=== PATIENT | male | born 1970 | race Caucasian/White ===

== ENCOUNTER 2017-02-11 13:14 | Emergency (ER) | payer SELFPAY ==
[2015-02-18 10:11] VITALS: BMI 23.7
[~2017-02-11 13:14] MED LIST: ASPIRIN81 MG PO; BRILINTA90 MG PO; COREG6.25 MG PO; EFFIENT10 MG PO; GEODON60 MG PO; HALDOL ORA30 MG/15 M PO; HYDROCODONE-APA1 TAB PO; KLONOPIN0.5 MG PO; METOPROLOL TART50 MG PO; NAPROSYN500 MG PO; PLAVIX75 MG PO; PRAVACHOL20 MG PO; ULTRAM ER100 MG PO
== END 2017-02-11 14:38 | disposition home or self-care (01) ==
LOC: D.ER 13:14
DX: K04.7 Periapical abscess without sinus (principal); K02.9 Dental caries, unspecified; K08.89 Other specified disorders of teeth and supporting structures; F10.10 Alcohol abuse, uncomplicated; F31.9 Bipolar disorder, unspecified; F17.200 Nicotine dependence, unspecified, uncomplicated

== ENCOUNTER 2017-10-30 14:08 | Emergency (ER) | payer SELFPAY ==
[2015-02-18 10:11] VITALS: BMI 23.7
[2017-10-30 15:12] LABS: BASOPHILS 0.5 % (0-2); EOSINOPHILS 2.8 % (0-7); HEMATOCRIT 38.8 % (42.0-54.0); HEMOGLOBIN 13.3 g/dL (13.5-17.5); IMMATURE GRANULOCYTES 0.3 % (0-5); LYMPHOCYTES 16.8 % (15-50); MCH 33.6 pg (26.0-34.0); MCHC 34.3 g/dL (31.0-37.0); MEAN PLATELET VOLUME 8.7 fL (7.4-10.4); MONOCYTES 8.7 % (2-11); NEUTROPHILS 70.9 % (40-80); RBC 3.96 10x6/uL (4.20-6.10); WBC 6.2 10x3/uL (4.8-10.8)
[2017-10-30 15:15] LABS: PLATELET COUNT 221 10x3/uL (130-400)
[2017-10-30 15:29] LABS: ALBUMIN 3.3 g/dL (3.4-5.0); ALKALINE PHOSPHATASE 126 U/L (46-116); ALT (SGPT) 33 U/L (10-68); BILIRUBIN - TOTAL 0.35 mg/dL (0.2-1.3); CALC OSMOLALITY 263 mosm/kg (275-300); CALCIUM 8.6 mg/dL (8.5-10.1); CARBON DIOXIDE 26.9 mmol/L (21.0-32.0); CHLORIDE - SERUM 97 mmol/L (98-107); CREATININE - SERUM 0.8 mg/dL (0.6-1.3); GLUCOSE 103 mg/dL (74-106); POTASSIUM - SERUM 4.3 mmol/L (3.5-5.1); PROTEIN - SERUM 7.3 g/dL (6.4-8.2); SODIUM 132 mmol/L (136-145); UREA NITROGEN 11 mg/dL (7-18); eGFR NON AFRICAN AMERICAN > 90 mL/min (90-120)
[2017-10-30 19:14] LABS: TROPONIN-I 0.026 ng/mL (0.000-0.060)
[2017-10-30 20:49] LABS: APPEARANCE CLEAR (CLEAR); BILIRUBIN NEGATIVE (NEGATIVE); COLOR YELLOW (YELLOW); GLUCOSE NEGATIVE (NEGATIVE); KETONE NEGATIVE (NEGATIVE); NITRITE NEGATIVE (NEGATIVE); PROTEIN NEGATIVE (NEGATIVE); UROBILINOGEN NORMAL (NORMAL)
== END 2017-10-30 22:11 | disposition home or self-care (01) ==
LOC: D.ER 14:08
PROVIDERS: Family Medicine
DX: J18.9 Pneumonia, unspecified organism (principal); I25.10 Atherosclerotic heart disease of native coronary artery without angina pectoris; F17.200 Nicotine dependence, unspecified, uncomplicated

== ENCOUNTER 2017-10-31 18:48 | Emergency (ER) | payer SELFPAY ==
[2015-02-18 10:11] VITALS: BMI 23.7
== END 2017-11-01 01:02 | disposition home or self-care (01) ==
LOC: D.ER 18:48
DX: J18.9 Pneumonia, unspecified organism (principal); F17.200 Nicotine dependence, unspecified, uncomplicated

== ENCOUNTER 2017-12-16 02:36 | Inpatient (IN) | payer MEDICAID ==
--- NOTE | ~2017-12-16 | CN ---
PATIENT NAME:ALIN DICK SR MEDICAL RECORD: [id number] : 70 LOCATION:[facility].2311 ADMIT DATE: 12/16/17 ACCOUNT: [id number] CONSULTING PHYSICIAN: KRYSTAL CAMACHO MD REFERRING PHYSICIAN: ALECIA CHURCH MD DATE OF CONSULTATION: 12/16/2017 CONSULT REQUESTING PHYSICIAN: Alecia Church MD REASON FOR CONSULTATION: Pneumonia and alcoholism. HISTORY OF PRESENT ILLNESS: Mr. Dick is a 47-year-old gentleman who is a very poor historian, now sleepy after Ativan injection, not cooperating with a history. The history was taken mainly by reviewing the patient's note. The patient came in early this morning with chest pain. Workup showed no elevated cardiac enzymes, but the patient is drinking since yesterday. He is very irritated and agitated. The chest x-ray did show pneumonia. REVIEW OF SYSTEMS: The detail is not obtainable. PAST MEDICAL HISTORY: 1. Hypertension. 2. [place]. 3. Coronary artery disease. 4. Hypertensive cardiac disease. 5. History of ventricular aneurysm. 6. History of schizophrenia, depression, and anxiety. PAST SURGICAL HISTORY: 1. Ankle surgery. 2. Right heart stent placement, cardiac catheterization in January 2015. ALLERGIES: There are no known drug allergies. MEDICATIONS: He is on Plavix, naproxen, tramadol, haloperidol, and carvedilol. PERSONAL AND SOCIAL HISTORY: He is still an everyday drinker. FAMILY HISTORY: Significant for cardiovascular disease. PHYSICAL EXAMINATION: GENERAL: Now, the patient is lying comfortably in bed. He is not in acute distress. The patient is sedated. HEENT: Conjunctivae pink, sclerae nonicteric. NECK: Supple, no JVD. CHEST: Excursion is minimal on both sides. Crackle on the right side. No wheezing. HEART: Rhythm regular, normal sound, no murmur. ABDOMEN: Soft. Bowel sounds present. No hepatosplenomegaly. RECTAL: Deferred. EXTREMITIES: No cyanosis, no clubbing, no pedal edema. SKIN: Warm, normal turgor. CENTRAL NERVOUS SYSTEM: The patient is awake and alert. There are no obvious cranial nerve abnormalities. The gait was not tested. The patient is very sleepy and lethargic and irritated. CONSULT REPORT [id number] ALIN DICK SR CHEST RADIOGRAPH: There are infiltrates, right lower lobe. OTHER LABORATORY DATA: CBC: WBC is 5.4, hemoglobin 12.1, hematocrit 36.4, and the platelet count 166. Chemistry: Sodium is 139, potassium 3.9. Troponin is 0.051. The creatinine is 1.59. IMPRESSION: 1. Pneumonia, right lower lobe, most likely community-acquired pneumonia, possibly aspiration with alcoholism. 2. Alcoholism. 3. Chest pain, rule out acute coronary syndrome. 4. Hypertensive heart disease. 5. History of left ventricular aneurysm. 6. Congestive heart failure, possible diastolic dysfunction with elevated proBNP. 7. Coronary artery disease. RECOMMENDATIONS: 1. Continue Levaquin. I will add ceftriaxone. 2. Follow up labs and chest radiograph. 3. DTs precaution, multivitamin, and Ativan IV. 4. Cardiac workup, series of cardiac enzymes. Dr. Church thank you for involving me in the care of Mr. Dick. TRANSINT:[id number] Voice Confirmation ID: [id number] DOCUMENT ID: [id number] KRYSTAL CAMACHO MD at 1340 CC: ALECIA CHURCH [id number] DICTATION DATE: 12/16/171818 HAND SIGN WRITER: 12/16/171927 DIS IN 12/18/17 [facility] [address] [facility] [place] [address]
[2017-12-16 03:19] LABS: BASOPHILS 0.4 % (0-2); EOSINOPHILS 1.7 % (0-7); HEMATOCRIT 36.4 % (42.0-54.0); HEMOGLOBIN 12.1 g/dL (13.5-17.5); IMMATURE GRANULOCYTES 0.2 % (0-5); LYMPHOCYTES 37.3 % (15-50); MCH 34.4 pg (26.0-34.0); MCHC 33.2 g/dL (31.0-37.0); MCV 103.4 fL (80.0-100.0); MONOCYTES 8.2 % (2-11); NEUTROPHILS 52.2 % (40-80); PLATELET COUNT 166 10x3/uL (130-400); RBC 3.52 10x6/uL (4.20-6.10); WBC 5.4 10x3/uL (4.8-10.8)
[2017-12-16 03:27] LABS: INR 1.06 (0.85-1.17); PROTIME 13.4 SECONDS (11.6-15.0)
[2017-12-16 03:28] LABS: APTT 29.1 SECONDS (22.8-39.4)
[2017-12-16 03:29] LABS: D-DIMER-QUANTITATIVE 0.69 ug/mLFEU (0.20-0.54)
[2017-12-16 03:33] LABS: ALKALINE PHOSPHATASE 85 U/L (46-116); ALT (SGPT) 42 U/L (10-68); BILIRUBIN - TOTAL 0.51 mg/dL (0.2-1.3); CALC OSMOLALITY 278 mosm/kg (275-300); CALCIUM 8.3 mg/dL (8.5-10.1); CHLORIDE - SERUM 105 mmol/L (98-107); GLUCOSE 88 mg/dL (74-106); POTASSIUM - SERUM 3.9 mmol/L (3.5-5.1); PROTEIN - SERUM 6.3 g/dL (6.4-8.2); SODIUM 139 mmol/L (136-145); UREA NITROGEN 18 mg/dL (7-18); eGFR NON AFRICAN AMERICAN 85 mL/min (90-120)
[2017-12-16 03:44] LABS: AMYLASE - SERUM 44 U/L (25-115); CHOL - HDL RATIO 2.4 ratio (2.3-4.9); CHOLESTEROL, TOTAL 146 mg/dL (0-200); CKMB 6.8 U/L (0.0-3.6); CREATINE KINASE 180 UL (21-232); HDL CHOLESTEROL 61 mg/dL (32-96); LDL CHOLESTEROL 52 mg/dL (0-100); LDL-HDL RATIO 0.9 ratio (1.5-3.5); LIPASE 200 U/L (73-393); PRO BNP 2313 pg/mL (0-125); TRIGLYCERIDE 169 mg/dL (30-200); TROPONIN-I 0.041 ng/mL (0.000-0.060)
[2017-12-16 07:20] LABS: CKMB 7.5 U/L (0.0-3.6); CREATINE KINASE 205 UL (21-232)
[2017-12-16 13:09] LABS: CKMB 6.8 U/L (0.0-3.6); CREATINE KINASE 159 UL (21-232); TROPONIN-I 0.051 ng/mL (0.000-0.060)
[2017-12-16 18:38] LABS: CKMB 5.7 U/L (0.0-3.6); CREATINE KINASE 143 UL (21-232); TROPONIN-I 0.041 ng/mL (0.000-0.060)
[2017-12-17] VITALS (15 sets, daily range): BP systolic 103–142; BP diastolic 73–109; BMI 24.1
[2017-12-17 05:58] LABS: BASOPHILS 0.4 % (0-2); EOSINOPHILS 1.8 % (0-7); HEMATOCRIT 41.5 % (42.0-54.0); HEMOGLOBIN 13.4 g/dL (13.5-17.5); IMMATURE GRANULOCYTES 0.3 % (0-5); LYMPHOCYTES 13.4 % (15-50); MCHC 32.3 g/dL (31.0-37.0); MCV 105.3 fL (80.0-100.0); MEAN PLATELET VOLUME 8.9 fL (7.4-10.4); MONOCYTES 6.8 % (2-11); NEUTROPHILS 77.3 % (40-80); PLATELET COUNT 174 10x3/uL (130-400); RBC 3.94 10x6/uL (4.20-6.10); RDW 15.3 % (11.5-14.5)
[2017-12-17 05:59] LABS: WBC 7.8 10x3/uL (4.8-10.8)
[2017-12-17 06:25] LABS: ALKALINE PHOSPHATASE 85 U/L (46-116); ALT (SGPT) 36 U/L (10-68); CALC OSMOLALITY 280 mosm/kg (275-300); CALCIUM 7.9 mg/dL (8.5-10.1); CARBON DIOXIDE 24.6 mmol/L (21.0-32.0); CHLORIDE - SERUM 108 mmol/L (98-107); GLUCOSE 123 mg/dL (74-106); PROTEIN - SERUM 6.5 g/dL (6.4-8.2); SODIUM 140 mmol/L (136-145); UREA NITROGEN 15 mg/dL (7-18); eGFR NON AFRICAN AMERICAN 85 mL/min (90-120)
[2017-12-17 06:27] LABS: POTASSIUM - SERUM 4.5 mmol/L (3.5-5.1)
== END 2017-12-18 00:05 | DRG 896 ==
LOC: D.ER 02:36 → D.EDHOLD 06:02 → D.ICU 06:02
PROVIDERS: Family Medicine
DX: F10.231 Alcohol dependence with withdrawal delirium (principal); J69.0 Pneumonitis due to inhalation of food and vomit; I42.9 Cardiomyopathy, unspecified; J44.9 Chronic obstructive pulmonary disease, unspecified; I10 Essential (primary) hypertension; I25.10 Atherosclerotic heart disease of native coronary artery without angina pectoris; E78.5 Hyperlipidemia, unspecified; D64.9 Anemia, unspecified; T51.0X4A Toxic effect of ethanol, undetermined, initial encounter; D75.89 Other specified diseases of blood and blood-forming organs

== ENCOUNTER 2018-02-19 12:45 | Emergency (ER) | payer MEDICAID ==
[2017-12-17 11:13] VITALS: BMI 24.1
[2018-02-19 13:24] LABS: APPEARANCE CLEAR (CLEAR); BILIRUBIN NEGATIVE (NEGATIVE); COLOR YELLOW (YELLOW); GLUCOSE NEGATIVE (NEGATIVE); KETONE NEGATIVE (NEGATIVE); NITRITE NEGATIVE (NEGATIVE); PROTEIN NEGATIVE (NEGATIVE); SPECIFIC GRAVITY 1.005 (1.005-1.020); UROBILINOGEN NORMAL (NORMAL)
[2018-02-19 13:26] LABS: BASOPHILS 0.3 % (0-2); HEMATOCRIT 35.7 % (42.0-54.0); HEMOGLOBIN 11.6 g/dL (13.5-17.5); IMMATURE GRANULOCYTES 0.2 % (0-5); LYMPHOCYTES 15.8 % (15-50); MCH 33.6 pg (26.0-34.0); MCHC 32.5 g/dL (31.0-37.0); MCV 103.5 fL (80.0-100.0); MEAN PLATELET VOLUME 8.8 fL (7.4-10.4); MONOCYTES 6.4 % (2-11); NEUTROPHILS 75.3 % (40-80); RBC 3.45 10x6/uL (4.20-6.10); RDW 14.9 % (11.5-14.5); WBC 5.9 10x3/uL (4.8-10.8)
[2018-02-19 13:37] LABS: UDS - AMPHET NEGATIVE QUAL (NEGATIVE); UDS - BARB NEGATIVE QUAL (NEGATIVE); UDS - BENZO POSITIVE QUAL (NEGATIVE); UDS - COCAINE NEGATIVE QUAL (NEGATIVE); UDS - OPIATE NEGATIVE QUAL (NEGATIVE); UDS - PCP NEGATIVE QUAL (NEGATIVE); UDS - THC NEGATIVE QUAL (NEGATIVE)
[2018-02-19 13:37] LABS: PLATELET COUNT 212 10x3/uL (130-400)
[2018-02-19 13:43] LABS: ALBUMIN 2.6 g/dL (3.4-5.0); ALKALINE PHOSPHATASE 124 U/L (46-116); ALT (SGPT) 68 U/L (10-68); BILIRUBIN - TOTAL 0.35 mg/dL (0.2-1.3); CALC OSMOLALITY 279 mosm/kg (275-300); CALCIUM 8.3 mg/dL (8.5-10.1); CARBON DIOXIDE 23.5 mmol/L (21.0-32.0); CHLORIDE - SERUM 105 mmol/L (98-107); GLUCOSE 84 mg/dL (74-106); POTASSIUM - SERUM 4.4 mmol/L (3.5-5.1); PROTEIN - SERUM 6.2 g/dL (6.4-8.2); SODIUM 140 mmol/L (136-145); UREA NITROGEN 18 mg/dL (7-18); eGFR NON AFRICAN AMERICAN 85 mL/min (90-120)
[2018-02-19 13:54] LABS: CKMB 22.6 U/L (0.0-3.6); CREATINE KINASE 902 UL (21-232); TROPONIN-I 0.041 ng/mL (0.000-0.060)
== END 2018-02-19 16:43 | disposition left against medical advice (07) ==
LOC: D.ER 12:45
PROVIDERS: Family Medicine
DX: F10.129 Alcohol abuse with intoxication, unspecified (principal); R41.82 Altered mental status, unspecified; E72.20 Disorder of urea cycle metabolism, unspecified; F17.200 Nicotine dependence, unspecified, uncomplicated

== ENCOUNTER 2018-02-19 17:33 | Emergency (ER) | payer MEDICAID ==
[2017-12-17 11:13] VITALS: BMI 24.1
[2018-02-19 18:23] LABS: AMYLASE - SERUM 47 U/L (25-115); LIPASE 274 U/L (73-393)
== END 2018-02-19 21:01 | disposition home or self-care (01) ==
LOC: D.ER 17:33
PROVIDERS: Physician Assistant Medical
DX: R10.9 Unspecified abdominal pain (principal); F17.200 Nicotine dependence, unspecified, uncomplicated

== ENCOUNTER 2018-03-06 10:40 | Emergency (ER) | payer MEDICAID ==
[2017-12-17 11:13] VITALS: BMI 24.1
[2018-03-06 11:34] LABS: UDS - AMPHET POSITIVE QUAL (NEGATIVE); UDS - BARB NEGATIVE QUAL (NEGATIVE); UDS - BENZO POSITIVE QUAL (NEGATIVE); UDS - COCAINE NEGATIVE QUAL (NEGATIVE); UDS - OPIATE NEGATIVE QUAL (NEGATIVE); UDS - PCP NEGATIVE QUAL (NEGATIVE); UDS - THC NEGATIVE QUAL (NEGATIVE)
[2018-03-06 11:48] LABS: BASOPHILS 0.2 % (0-2); EOSINOPHILS 0.9 % (0-7); HEMATOCRIT 36.9 % (42.0-54.0); HEMOGLOBIN 12.1 g/dL (13.5-17.5); IMMATURE GRANULOCYTES 0.2 % (0-5); LYMPHOCYTES 12.1 % (15-50); MCH 32.8 pg (26.0-34.0); MCHC 32.8 g/dL (31.0-37.0); MEAN PLATELET VOLUME 8.9 fL (7.4-10.4); MONOCYTES 6.9 % (2-11); NEUTROPHILS 79.7 % (40-80); RBC 3.69 10x6/uL (4.20-6.10); RDW 15.5 % (11.5-14.5); WBC 12.1 10x3/uL (4.8-10.8)
[2018-03-06 11:50] LABS: APPEARANCE HAZY (CLEAR); COLOR AMBER (YELLOW); SPECIFIC GRAVITY 1.025 (1.005-1.020)
[2018-03-06 11:51] LABS: BACTERIA MODERATE /hpf (NONE SEEN); BILIRUBIN 1+ (NEGATIVE); GLUCOSE NEGATIVE (NEGATIVE); GRANULAR CAST 0-5 /lpf (NONE SEEN); KETONE NEGATIVE (NEGATIVE); MUCUS >1+ /lpf (NONE SEEN); NITRITE NEGATIVE (NEGATIVE); PROTEIN NEGATIVE (NEGATIVE); RED CELLS - URINE 0-5 /hpf (0-5); WHITE CELLS - URINE OCC /hpf (0-5)
[2018-03-06 11:54] LABS: PLATELET COUNT 271 10x3/uL (130-400)
[2018-03-06 11:57] LABS: APTT 29.6 SECONDS (22.8-39.4); INR 1.22 (0.85-1.17)
[2018-03-06 12:14] LABS: ALBUMIN 2.6 g/dL (3.4-5.0); ANION GAP 14.6 mmol/L (8-16); BILIRUBIN - TOTAL 1.38 mg/dL (0.2-1.3); CALCIUM 8.4 mg/dL (8.5-10.1); CARBON DIOXIDE 26.7 mmol/L (21.0-32.0); CREATININE - SERUM 1.4 mg/dL (0.6-1.3); POTASSIUM - SERUM 4.3 mmol/L (3.5-5.1); PROTEIN - SERUM 6.7 g/dL (6.4-8.2)
[2018-03-06 12:22] LABS: TROPONIN-I 0.035 ng/mL (0.000-0.060)
== END 2018-03-06 12:50 | disposition home or self-care (01) ==
LOC: D.ER 10:40
PROVIDERS: Emergency Medicine
DX: K29.00 Acute gastritis without bleeding (principal); Z91.11 Patient's noncompliance with dietary regimen; Z91.14 Patient's other noncompliance with medication regimen; R60.0 Localized edema; F19.10 Other psychoactive substance abuse, uncomplicated; R00.0 Tachycardia, unspecified; F17.200 Nicotine dependence, unspecified, uncomplicated

== ENCOUNTER 2018-03-07 03:21 | Inpatient (IN) | payer MEDICAID ==
[~2018-03-07] VITALS: Ht 180.3 cm; Wt 81.6 kg
[2018-03-07] VITALS (9 sets, daily range): BP systolic 105–126; BP diastolic 81–97; BMI 25.1
--- NOTE | ~2018-03-07 | HP ---
PATIENT: ALIN DICK MEDICAL RECORD: [id number] ACCOUNT: [id number] LOCATION:[facility] D.2303 : 70 ADMISSION DATE: 03/07/18 HISTORY AND PHYSICAL EXAMINATION HISTORY OF PRESENT ILLNESS: The patient is a 47-year-old male with history of coronary artery disease and congestive heart failure and chronic alcoholism. He was seen in the ED on the 03/06/2018, was discharged around 1500 hours for leg edema. He was given Lasix and sent home. He states he began having urinary retention and shortness of breath, so he called EMS. On arrival, he is in mild distress, presented with 3+ edema up to his knees. Bladder scan revealed 123 cc of urine in his bladder. He denied chest pain or fever. The patient was intoxicated. Evaluation in the ED revealed a blood alcohol level of 95, chronically elevated liver function test, BUN of 34, creatinine of 1.5. Chest x-ray reportedly showed mild pulmonary edema. The patient initially has a history of coronary artery disease with last cardiac catheterization in [address] Jimenez, post-CO showing patent LAD stent, ramus OM1 stent, patent left circumflex, patent with 40% mid stenosis and RCA with mild occlusion and was treated medically. The patient is now sleeping somewhat hard to arouse due to his intoxication. He has not been combative, but on last admission November of this year, he became combative and left AMA from the ICU with a diagnosis of pneumonia. PAST HISTORY: CAD post-PTCA multiple vessels, history of [place], history of schizophrenia, depression, ventricular aneurysm, hypertensive cardiac disease, essential hypertension. SURGICAL HISTORY: He has had ankle surgery, multiple coronary stents. ALLERGIES: None mentioned. FAMILY HISTORY: Unobtainable. REVIEW OF SYSTEMS: As above. Unobtainable from the patient currently as he is sleeping. PHYSICAL EXAMINATION: VITAL SIGNS: Temperature is 98.4, pulse 66 and regular, respirations 94, blood pressure 110/81 with a sat of 94% on 2 liters. GENERAL: The patient is somnolent and snoring. HEENT: His eyes are nonicteric. Pupils are reactive. NECK: Supple. CHEST: He has faint crackles in the bases. No wheeze. He is not laboring to breathe. HEART: Regular rate and rhythm without murmur. ABDOMEN: Soft. No obvious organomegaly or ascites appreciated. EXTREMITIES: He has 2+ bipedal and pretibial edema of the knees bilaterally. NEUROLOGICAL: The patient arouses to touch and loud vocal commands, but not following commands currently. No motor deficits are appreciated. LABORATORY DATA: EKG shows sinus rhythm with right axis deviation. White count 11,000, H&H of 11.5 and 35.2, MCV of 100.6, platelet count 278,000. Chemistry: Sodium 135, BUN and creatinine are 34 and 1.5, AST 158, ALT 230, alk phos 205. Creatinine kinase 294. CPK-MB 17.7 with a normal troponin. ProBNP is 5840. Urine tox shows alcohol of 95.0 and positive benzodiazepines. INR is 1.26. HISTORY AND PHYSICAL [id number] ALIN DICK SR ASSESSMENT: 1. Decompensated congestive heart failure with hypoxemia. 2. History of multivessel CAD post remote CO. 3. Intoxication. 4. Alcoholism. 5. Schizophrenia. 6. Essential hypertension. 7. History of pneumonia, November of 2017 leaving AMA. PLAN: The patient was placed on medical floor with close cardiac and respiratory monitoring. Concerned risk for DTs. Should patient show any agitation, we will move to the ICU. We will place on benzodiazepines as indicated, banana bag. Further workup pending clinical course. TRANSINT:[id number] Voice Confirmation ID: [id number] DOCUMENT ID: [id number] TAMMY CHAUDHARY MD at 0752 CC: [id number] DICTATION DATE: 03/07/18753 JEWEL BEARING MAKER: 03/07/18 1314 ADM IN [facility] [id number] [place] [address]
--- NOTE | ~2018-03-07 | CN ---
PATIENT NAME:ALIN DICK SR MEDICAL RECORD: [id number] : 70 LOCATION:[facility] ADMIT DATE: 03/07/18 ACCOUNT: [id number] CONSULTING PHYSICIAN: KRYSTAL CAMACHO MD REFERRING PHYSICIAN: SEUN PARKER MD DATE OF CONSULTATION: 03/07/2018 CONSULT REQUESTING PHYSICIAN: Dr. Seun Parker. REASON FOR CONSULTATION: Apneic episode. HISTORY OF PRESENT ILLNESS: Mr. Dick is a 47-year-old gentleman who was admitted to the ER with alcohol intoxication. Now, the patient is very lethargic and uncooperative and history was taken mainly by talking to the nursing staff and reviewing the patient's note. The patient was seen in the ER yesterday and discharged with Lasix for lower extremity edema. He was in mild distress and had 3+ pedal edema. Today, the patient came back with alcohol intoxication and also shortness of breath. The patient was taking some, most likely benzodiazepine. While in the hospital, they took out some pill from the pocket and took it. Since then, the patient has apneic episode and the patient was transferred to the ICU. The patient was given an injection of Romazicon and his breathing improved. Now, he is more awake and alert, but he is still confused and combative. REVIEW OF SYSTEMS: The detail is not obtainable. PAST MEDICAL HISTORY: 1. He has coronary artery disease, status post PTCA. 2. History of [place]. 3. Schizophrenia. 4. Depression. 5. Ventricular aneurysm. 6. Hypertensive cardiac disease. 7. Hypertension. 8. Alcoholism. PAST SURGICAL HISTORY: He had ankle surgery, cardiac catheterization and stent placement. ALLERGIES: There is no known drug allergy. FAMILY HISTORY: Not obtainable. PHYSICAL EXAMINATION: GENERAL: Now, the patient is very lethargic and agitated. VITAL SIGNS: Blood pressure 109/81, pulse is 114, respirations 16, temperature 97.3, SpO2 94% on BiPAP. On arrival to the ICU, he had another episode of apnea. HEENT: Conjunctivae are pink. Sclerae not icteric. NECK: Neck is supple. No JVD. CHEST: There are bilateral crackles. No wheezing. HEART: Rate and rhythm regular, normal sound, no murmur. ABDOMEN: Abdomen is soft. Bowel sounds present. No hepatosplenomegaly. RECTAL: Deferred. EXTREMITIES: No cyanosis, no clubbing. There is 2+ pedal edema. CONSULT REPORT [id number] ALIN DICK SR SKIN: Warm, normal turgor. CENTRAL NERVOUS SYSTEM: The patient is very confused and agitated. There is no obvious cranial abnormality. LABORATORY DATA: CBC with WBC 11, hemoglobin 11.5, hematocrit 35.2, the platelet count is 278. Chemistry: Sodium is 135, potassium 4.2, BUN is 34, creatinine 1.5. AST 158, ALT is 230, alkaline phosphatase 205. Ammonia 87. ProBNP is 5840. CK is 294, MB is 17.7. ABG: The pH is 7.25, pCO2 45.9, pO2 is 73, bicarbonate is 28.2. IMPRESSION: 1. Acute hypoxic respiratory failure. 2. Central apnea, most likely secondary to benzodiazepine overdose. 3. Alcoholism. 4. Hepatic encephalopathy. 5. Congestive heart failure, possible diastolic dysfunction secondary to hypertension. 6. Alcoholism. RECOMMENDATIONS: BiPAP as required. Romazicon injection p.r.n. I will hold the Lasix. Continue the multivitamin and banana bag. Start him on empiric Zosyn with the patient's leukocytosis and increased interstitial marking, possible aspiration pneumonia when the patient was obtunded. Lactulose 45 cc t.i.d. per oral. Follow up ammonia level, Lasix p.r.n. Follow up labs and chest radiograph in the morning. Dr. Parker, thank you for involving me in the care of Ms. Dick. TRANSINT:[id number] Voice Confirmation ID: [id number] DOCUMENT ID: [id number] KRYSTAL CAMACHO MD CC: SEUN PARKER [id number] DICTATION DATE: 03/07/18 1800 CORE SUCKER: 03/08/18 0206 ADM IN [facility] [address] [place] [address]
[2018-03-07 03:47] LABS: BASOPHILS 0.3 % (0-2); EOSINOPHILS 2.3 % (0-7); HEMATOCRIT 35.2 % (42.0-54.0); HEMOGLOBIN 11.5 g/dL (13.5-17.5); IMMATURE GRANULOCYTES 0.4 % (0-5); LYMPHOCYTES 17.2 % (15-50); MCH 32.9 pg (26.0-34.0); MCHC 32.7 g/dL (31.0-37.0); MCV 100.6 fL (80.0-100.0); MEAN PLATELET VOLUME 8.6 fL (7.4-10.4); MONOCYTES 6.4 % (2-11); NEUTROPHILS 73.4 % (40-80); PLATELET COUNT 278 10x3/uL (130-400); RDW 15.6 % (11.5-14.5)
[2018-03-07 03:57] LABS: APTT 31.1 SECONDS (22.8-39.4)
[2018-03-07 03:58] LABS: D-DIMER-QUANTITATIVE 3.15 ug/mLFEU (0.20-0.54)
[2018-03-07 04:00] LABS: ALBUMIN 2.5 g/dL (3.4-5.0); ALKALINE PHOSPHATASE 205 U/L (46-116); ALT (SGPT) 230 U/L (10-68); BILIRUBIN - TOTAL 0.85 mg/dL (0.2-1.3); CALC OSMOLALITY 276 mosm/kg (275-300); CARBON DIOXIDE 23.5 mmol/L (21.0-32.0); CHLORIDE - SERUM 100 mmol/L (98-107); CREATININE - SERUM 1.5 mg/dL (0.6-1.3); GLUCOSE 89 mg/dL (74-106); POTASSIUM - SERUM 4.2 mmol/L (3.5-5.1); PROTEIN - SERUM 6.5 g/dL (6.4-8.2); SODIUM 135 mmol/L (136-145); UREA NITROGEN 34 mg/dL (7-18); eGFR NON AFRICAN AMERICAN 53 mL/min (90-120)
[2018-03-07 04:03] LABS: INR 1.26 (0.85-1.17); PROTIME 15.3 SECONDS (11.6-15.0)
[2018-03-07 04:12] LABS: CKMB 17.7 U/L (0.0-3.6); CREATINE KINASE 294 UL (21-232); PRO BNP 5840 pg/mL (0-125); TROPONIN-I 0.039 ng/mL (0.000-0.060)
[2018-03-07 04:16] LABS: UDS - AMPHET NEGATIVE QUAL (NEGATIVE); UDS - BARB NEGATIVE QUAL (NEGATIVE); UDS - BENZO POSITIVE QUAL (NEGATIVE); UDS - COCAINE NEGATIVE QUAL (NEGATIVE); UDS - OPIATE NEGATIVE QUAL (NEGATIVE); UDS - PCP NEGATIVE QUAL (NEGATIVE); UDS - THC NEGATIVE QUAL (NEGATIVE)
[2018-03-07 04:22] LABS: APPEARANCE CLEAR (CLEAR); BILIRUBIN NEGATIVE (NEGATIVE); COLOR YELLOW (YELLOW); GLUCOSE NEGATIVE (NEGATIVE); KETONE NEGATIVE (NEGATIVE); NITRITE NEGATIVE (NEGATIVE); PROTEIN 2+ mg/dL (NEGATIVE)
[2018-03-07 04:23] LABS: BACTERIA FEW /hpf (NONE SEEN); EPITHELIAL CELLS 0-5 /hpf (0-5); HYALINE CAST 0-5 /lpf (NONE SEEN); RED CELLS - URINE 0-5 /hpf (0-5); WHITE CELLS - URINE 0-5 /hpf (0-5)
[2018-03-08] VITALS (25 sets, daily range): BP systolic 76–153; BP diastolic 53–86; Ht 180.3 cm; Wt 81.6 kg
[2018-03-08 05:03] LABS: BASOPHILS 0.1 % (0-2); EOSINOPHILS 0.3 % (0-7); HEMATOCRIT 36.1 % (42.0-54.0); HEMOGLOBIN 11.7 g/dL (13.5-17.5); IMMATURE GRANULOCYTES 0.3 % (0-5); LYMPHOCYTES 8.7 % (15-50); MCH 32.1 pg (26.0-34.0); MCHC 32.4 g/dL (31.0-37.0); MCV 99.2 fL (80.0-100.0); MEAN PLATELET VOLUME 9.3 fL (7.4-10.4); MONOCYTES 4.6 % (2-11); PLATELET COUNT 267 10x3/uL (130-400); RBC 3.64 10x6/uL (4.20-6.10); RDW 15.3 % (11.5-14.5); WBC 10.5 10x3/uL (4.8-10.8)
[2018-03-08 05:23] LABS: ALBUMIN 2.2 g/dL (3.4-5.0); BILIRUBIN - TOTAL 1.22 mg/dL (0.2-1.3); CALCIUM 7.8 mg/dL (8.5-10.1); CARBON DIOXIDE 24.2 mmol/L (21.0-32.0); CREATININE - SERUM 1.7 mg/dL (0.6-1.3); POTASSIUM - SERUM 4.2 mmol/L (3.5-5.1); PROTEIN - SERUM 5.7 g/dL (6.4-8.2)
[2018-03-09] VITALS (13 sets, daily range): BP systolic 80–146; BP diastolic 50–79
[2018-03-09 04:47] LABS: BASOPHILS 0.3 % (0-2); EOSINOPHILS 4.1 % (0-7); HEMATOCRIT 35.8 % (42.0-54.0); HEMOGLOBIN 11.7 g/dL (13.5-17.5); IMMATURE GRANULOCYTES 0.5 % (0-5); LYMPHOCYTES 16.9 % (15-50); MCH 32.4 pg (26.0-34.0); MCHC 32.7 g/dL (31.0-37.0); MCV 99.2 fL (80.0-100.0); MEAN PLATELET VOLUME 8.7 fL (7.4-10.4); MONOCYTES 8.4 % (2-11); NEUTROPHILS 69.8 % (40-80); PLATELET COUNT 272 10x3/uL (130-400); RBC 3.61 10x6/uL (4.20-6.10); RDW 15.6 % (11.5-14.5); WBC 10.2 10x3/uL (4.8-10.8)
[2018-03-09 05:07] LABS: ANION GAP 11.2 mmol/L (8-16); CALCIUM 7.9 mg/dL (8.5-10.1); CARBON DIOXIDE 27.4 mmol/L (21.0-32.0); CREATININE - SERUM 1.8 mg/dL (0.6-1.3); POTASSIUM - SERUM 3.6 mmol/L (3.5-5.1)
[2018-03-10 00:58] VITALS: BP 116/83
== END 2018-03-10 03:20 | disposition home or self-care (01) | DRG 291 ==
LOC: D.ER 03:21 → D.EDHOLD 05:21 → D.ICU 05:21 → D.MS 05:21 → D.ICU 16:25 → D.M2 03-09 17:22
PROVIDERS: Family Medicine
PROC: 5A09357 Assistance with Respiratory Ventilation, Less than 24 Consecutive Hours, Continuous Positive Airway Pressure (ICD-10-PCS; principal; 2018-03-07)
DX: I11.0 Hypertensive heart disease with heart failure (principal); J96.01 Acute respiratory failure with hypoxia; J69.0 Pneumonitis due to inhalation of food and vomit; J81.1 Chronic pulmonary edema; F10.239 Alcohol dependence with withdrawal, unspecified; I42.8 Other cardiomyopathies; I50.22 Chronic systolic (congestive) heart failure; F10.229 Alcohol dependence with intoxication, unspecified; K72.90 Hepatic failure, unspecified without coma; F17.200 Nicotine dependence, unspecified, uncomplicated; R33.9 Retention of urine, unspecified; Z91.19 Patient's noncompliance with other medical treatment and regimen; F20.9 Schizophrenia, unspecified; E78.5 Hyperlipidemia, unspecified; T42.4X4A Poisoning by benzodiazepines, undetermined, initial encounter

== ENCOUNTER 2018-03-12 03:10 | Emergency (ER) | payer MEDICAID ==
[2018-03-08 12:24] VITALS: BMI 25.1
== END 2018-03-12 04:50 | disposition home or self-care (01) ==
LOC: D.ER 03:10
DX: M54.5 Low back pain (principal); W19.XXXA Unspecified fall, initial encounter; Y93.89 Activity, other specified; Y92.89 Other specified places as the place of occurrence of the external cause; Y04.2XXA Assault by strike against or bumped into by another person, initial encounter

== ENCOUNTER 2018-03-13 03:47 | Inpatient (IN) | payer MEDICAID ==
[~2018-03-13] VITALS: Ht 180.3 cm; Wt 81.8 kg
--- NOTE | ~2018-03-13 | CN ---
PATIENT NAME:ALIN DICK SR MEDICAL RECORD: [id number] : 70 LOCATION:[facility]9 ADMIT DATE: 03/13/18 ACCOUNT: [id number] CONSULTING PHYSICIAN: KRYSTAL CAMACHO MD REFERRING PHYSICIAN: HOLLY GLASGOW MD DATE OF CONSULTATION: 03/14/2018 CONSULT REQUESTING PHYSICIAN: Holly Glasgow MD REASON FOR CONSULTATION: Vent management status post cardiopulmonary arrest. HISTORY OF PRESENT ILLNESS: Mr. Dick is a 47-year-old gentleman who was admitted with abdominal pain. He does have a history of cirrhosis of the liver, alcoholism. The patient was sitting on the commode today and the patient arrested. He was resuscitated, intubated, and the patient was brought into the ICU. He has totally wiped out his right lung, possible aspiration pneumonia during this resuscitation. REVIEW OF SYSTEMS: The detail is not obtainable. PAST MEDICAL HISTORY: 1. Coronary artery disease. 2. History of [place]. 3. Schizophrenia. 4. Depression. 5. History of ventricular aneurysm. 6. Hypertensive cardiac disease. 7. Congestive heart failure. 8. Alcoholism. 9. Cirrhosis of the liver. PAST SURGICAL HISTORY: 1. He has ankle surgery. 2. Cardiac catheterization placement. ALLERGIES: There are no known drug allergies. MEDICATIONS: [employer] is reviewed. PERSONAL AND SOCIAL HISTORY: The patient is drinking on a regular basis. He is a nonsmoker. FAMILY HISTORY: Noncontributory. PHYSICAL EXAMINATION: GENERAL: Now, the patient is orally intubated and sedated and unresponsive. VITAL SIGNS: The blood pressure is 118/65, pulse is 99, respiration is 24, temperature 97.9, SpO2 98% on mechanical ventilation and assist control. HEENT: Conjunctivae are pink. Sclerae are not icteric. Blood oozing from the nostril. HEART: Rate and rhythm is regular, normal S1, no murmur. ABDOMEN: Soft, bowel sounds present. No hepatosplenomegaly. RECTAL: Deferred. EXTREMITIES: No cyanosis, no clubbing, no pedal edema. SKIN: Warm, normal turgor. CONSULT REPORT [id number] ALIN DICK SR CENTRAL NERVOUS SYSTEM: The patient is unresponsive. LABORATORY DATA: CBC: The WBC is 9.6, hemoglobin 11.6, hematocrit 36, the platelet count 261. Chemistry: Sodium 139, potassium 4.4, BUN is 27, creatinine is 1, glucose 115, AST is 53, ALT is 76, alkaline phosphatase 169. Ammonia level is 35. Cardiac enzymes within normal range. Albumin is 2.4. IMPRESSION: 1. Acute hypoxic respiratory failure. 2. Status post code blue cardiopulmonary arrest. 3. Aspiration pneumonia, total wipe of right lung. 4. CHF with chronic systolic dysfunction. 5. Hypertensive heart disorder. 6. Cirrhosis of liver. 7. Alcoholism. 8. Possible anoxic encephalopathy. RECOMMENDATION: 1. Continue mechanical ventilation, adjust the setting. 2. DVT and GI bleed prophylaxis. 3. Discontinue Zithromax, discontinue Rocephin and start him on Zosyn and Levaquin for aspiration pneumonia and possible hospital-acquired pneumonia. 4. Albuterol ipratropium nebulizer. 5. Follow up labs and chest radiograph. Dr. Glasgow, thank you for involving me in the care of Ms. Dick. TRANSINT:[id number] Voice Confirmation ID: [id number] DOCUMENT ID: [id number] KRYSTAL CAMACHO MD CC: [id number] DICTATION DATE: 03/14/18 1358 SECRETARY BOARD OF COMMISSIONERS: 03/14/18 1423 ADM IN [facility] [address] [place] [id number]
--- NOTE | ~2018-03-13 | EC ---
PATIENT:ALIN DICK SR DATE OF SERVICE: 03/13/18 SEX: M MEDICAL RECORD: [id number] DATE OF : 70 [facility] D230 AGE OF PATIENT: 47 ADMISSION DATE: 03/13/18 REFERRING PHYSICIAN: INTERPRETING PHYSICIAN: NAIN PACK MD ECHOCARDIOGRAM REPORT ECHO CHARGES 5 ECHO LIMITED Date: 03/13 1 DOPPLER ECHO COLOR FLOW 2 DOPPLER ECHO PULSE CLINICAL DIAGNOSIS: CHF ECHOCARDIOGRAPHIC MEASUREMENTS (adult normal given) AC root (d.<3.7cm) 0 cm LV Septum d (<1.2 cm> 0 cm Valve Excursion 0 cm LV Septum (systole) 0 cm Left Atria (s.<4.0cm> 0 cm LVPW d(<1.2cm) 0 cm RV (d.<2.3cm) 0 cm LVPW (sytole) 0 cm LV diastole(<5.6CM) 0 cm MV E-F(>70mm/sec) 0 cm LV systole 0 cm LVOT Diameter 0 cm MV exc.(>10mm) 0 cm Est.ejection fraction (50-75%) % DOPPLER: LVIT 0 cm/sec A 0 cm/sec E 0 cm/sec LA 0 cm/sec RVSP 46.0 mmHg LVOT 0 cm/sec AOP1/2T 0 m/s Asc. Ao 0 cm/sec RVOT 0 cm/sec RA 0 cm/sec PA 0 cm/sec AV Gradient Peak 0 mmHg AV Mean 0 mmHg AV Area 0 cm MV Gradient Peak 0 mmHg MV Mean 0 mmHg MV Area 0 cm COMMENTS: LIMITED STUDY (2-D,COLOR,DOPPLER) COMPLETE ECHO DONE ON 03/08/18 Data Modeling Specialist: 1 CHRISTOPHER MORENOOE Branch Sales And Service Representative: 4 Dr. Pack TAPE# PACS Pericardial Effusion N DATE OF SERVICE: PROCEDURE: Transthoracic echocardiogram. FINDINGS: 1. Left ventricle was severely dilated, ejection fraction 15%. Left atrium and the right ventricle are also severely dilated. The patient has severe mitral regurgitation, severe tricuspid regurgitation, RVSP between 50 and 60 mmHg. 2. The interatrial septum is not well visualized. ECHOCARDIOGRAM REPORT [id number] ALIN DICK SR CONCLUSIONS: The patient has severe dilated cardiomyopathy with severe regurgitation of the tricuspid and mitral valve. TRANSINT:[id number] Voice Confirmation ID: [id number] DOCUMENT ID: [id number] NAIN PACK MD at 1342 CC: [id number] DICTATION DATE: 03/14/18812 OFFICE MACHINE TECHNICIAN: 03/14/18 1139 ADM IN [facility] [address] [place] [address]
--- NOTE | ~2018-03-13 | OP ---
PATIENT NAME: ALIN DICK SR MEDICAL RECORD: [id number] :70 LOCATION:.[facility] D.2309 ADMISSION DATE:03/13/18 SURGEON: KRYSTAL CAMACHO MD DATE OF OPERATION: 03/14/2018 PROCEDURE: Fiberoptic bronchoscopy. INDICATION: Mr. Dick was transferred to the ICU after cardiopulmonary arrest. The chest radiograph showed total opacification of the right lung. Fiberoptic bronchoscopy was carried out to inspect the airway for any food material and obtain specimen for culture and sensitivity to remove any mucous plug. DESCRIPTION OF PROCEDURE: The patient was already intubated. The fiberoptic bronchoscope was passed through the ET tube. The maria antonia was sharp. The right main bronchus to the right upper lobe, right lower lobe within normal range. There is some food particle and that was washed and cleaned. The left main bronchus was normal. The subsegment to the left upper lobe, left lower lobe within normal range. No endobronchial lesion was seen. Specimen washing was obtained and sent for routine culture sensitivity, AB and fungus, and cytology. TRANSINT:[id number] Voice Confirmation ID: [id number] DOCUMENT ID: [id number] KRYSTAL CAMACHO MD CC: [id number] DICTATION DATE: 03/14/18 1400 QUILL PICKING MACHINE OPERATOR: 03/14/18 1418 ADM IN [facility] [address] [place] [address]
[2018-03-13 04:50] LABS: BASOPHILS 0.4 % (0-2); EOSINOPHILS 2.4 % (0-7); HEMATOCRIT 36.5 % (42.0-54.0); IMMATURE GRANULOCYTES 0.8 % (0-5); LYMPHOCYTES 14.4 % (15-50); MCH 32.8 pg (26.0-34.0); MCHC 32.9 g/dL (31.0-37.0); MCV 99.7 fL (80.0-100.0); MEAN PLATELET VOLUME 8.8 fL (7.4-10.4); MONOCYTES 8.8 % (2-11); NEUTROPHILS 73.2 % (40-80); PLATELET COUNT 289 10x3/uL (130-400); RBC 3.66 10x6/uL (4.20-6.10); RDW 15.5 % (11.5-14.5); WBC 11.9 10x3/uL (4.8-10.8)
[2018-03-13 05:02] LABS: INR 1.18 (0.85-1.17); PROTIME 14.6 SECONDS (11.6-15.0)
[2018-03-13 05:07] LABS: ALBUMIN 2.7 g/dL (3.4-5.0); ALKALINE PHOSPHATASE 184 U/L (46-116); ALT (SGPT) 95 U/L (10-68); BILIRUBIN - TOTAL 0.78 mg/dL (0.2-1.3); CALC OSMOLALITY 272 mosm/kg (275-300); CALCIUM 8.2 mg/dL (8.5-10.1); CARBON DIOXIDE 27.5 mmol/L (21.0-32.0); CHLORIDE - SERUM 101 mmol/L (98-107); GLUCOSE 83 mg/dL (74-106); POTASSIUM - SERUM 3.8 mmol/L (3.5-5.1); PROTEIN - SERUM 6.8 g/dL (6.4-8.2); SODIUM 135 mmol/L (136-145); UREA NITROGEN 24 mg/dL (7-18); eGFR NON AFRICAN AMERICAN 85 mL/min (90-120)
[2018-03-13 05:17] LABS: D-DIMER-QUANTITATIVE 3.29 ug/mLFEU (0.20-0.54)
[2018-03-13 05:18] LABS: CKMB 5.6 U/L (0.0-3.6); CREATINE KINASE 189 UL (21-232); PRO BNP 5840 pg/mL (0-125); TROPONIN-I 0.036 ng/mL (0.000-0.060)
[2018-03-13 05:27] LABS: UDS - AMPHET NEGATIVE QUAL (NEGATIVE); UDS - BARB NEGATIVE QUAL (NEGATIVE); UDS - BENZO POSITIVE QUAL (NEGATIVE); UDS - COCAINE NEGATIVE QUAL (NEGATIVE); UDS - OPIATE NEGATIVE QUAL (NEGATIVE); UDS - PCP NEGATIVE QUAL (NEGATIVE); UDS - THC NEGATIVE QUAL (NEGATIVE)
[2018-03-13 07:30] LABS: TROPONIN-I 0.035 ng/mL (0.000-0.060)
[2018-03-13 13:22] LABS: INR 1.18 (0.85-1.17); PROTIME 14.6 SECONDS (11.6-15.0)
[2018-03-13 13:25] LABS: % SATURATION 15 % (15-55); IRON 67 ug/dl (35-150); TOTAL IRON BIND CAPACITY 430 ug/dl (260-445); UNSAT IRON BIND CAPACITY 363 ug/dl (150-375)
[2018-03-13 15:08] LABS: CKMB 5.5 U/L (0.0-3.6); CREATINE KINASE 192 UL (21-232)
[2018-03-13 15:11] LABS: TROPONIN-I < 0.017 ng/mL (0.000-0.060)
[2018-03-13 18:55] LABS: CKMB 6.1 U/L (0.0-3.6); CREATINE KINASE 169 UL (21-232); TROPONIN-I 0.034 ng/mL (0.000-0.060)
[2018-03-13 20:00] VITALS: BP 105/66
[2018-03-14] VITALS (17 sets, daily range): BP systolic 87–127; BP diastolic 62–93; BMI 28.8
[2018-03-14 06:00] LABS: BASOPHILS 0.2 % (0-2); EOSINOPHILS 1.6 % (0-7); HEMOGLOBIN 11.6 g/dL (13.5-17.5); IMMATURE GRANULOCYTES 0.3 % (0-5); LYMPHOCYTES 13.9 % (15-50); MCH 32.3 pg (26.0-34.0); MCHC 32.2 g/dL (31.0-37.0); MCV 100.3 fL (80.0-100.0); MEAN PLATELET VOLUME 9.1 fL (7.4-10.4); MONOCYTES 8.6 % (2-11); NEUTROPHILS 75.4 % (40-80); PLATELET COUNT 261 10x3/uL (130-400); RBC 3.59 10x6/uL (4.20-6.10); RDW 15.5 % (11.5-14.5); WBC 9.6 10x3/uL (4.8-10.8)
[2018-03-14 06:24] LABS: ALBUMIN 2.4 g/dL (3.4-5.0); ALKALINE PHOSPHATASE 169 U/L (46-116); ALT (SGPT) 76 U/L (10-68); CALC OSMOLALITY 283 mosm/kg (275-300); CALCIUM 8.5 mg/dL (8.5-10.1); CARBON DIOXIDE 29.2 mmol/L (21.0-32.0); CHLORIDE - SERUM 105 mmol/L (98-107); GLUCOSE 115 mg/dL (74-106); PROTEIN - SERUM 6.4 g/dL (6.4-8.2); SODIUM 139 mmol/L (136-145); UREA NITROGEN 27 mg/dL (7-18); eGFR NON AFRICAN AMERICAN 85 mL/min (90-120)
[2018-03-14 06:25] LABS: POTASSIUM - SERUM 4.4 mmol/L (3.5-5.1)
[2018-03-14 09:46] LABS: FOLATE (FOLIC ACID) - SERUM 18.9 ng/mL (>3.0)
[2018-03-15] VITALS (24 sets, daily range): BP systolic 84–186; BP diastolic 45–88; Ht 180.3 cm; Wt 81.8 kg
[2018-03-15 10:47] LABS: ALKALINE PHOSPHATASE 148 U/L (46-116); ALT (SGPT) 59 U/L (10-68); BILIRUBIN - TOTAL 0.65 mg/dL (0.2-1.3); CALC OSMOLALITY 292 mosm/kg (275-300); CALCIUM 7.9 mg/dL (8.5-10.1); CHLORIDE - SERUM 105 mmol/L (98-107); CREATININE - SERUM 1.1 mg/dL (0.6-1.3); GLUCOSE 91 mg/dL (74-106); MAGNESIUM - SERUM 1.2 mg/dL (1.8-2.4); PROTEIN - SERUM 5.1 g/dL (6.4-8.2); SODIUM 145 mmol/L (136-145); UREA NITROGEN 23 mg/dL (7-18); eGFR NON AFRICAN AMERICAN 76 mL/min (90-120)
[2018-03-15 10:49] LABS: POTASSIUM - SERUM 3.4 mmol/L (3.5-5.1)
[2018-03-15 13:19] LABS: FUNGUS STAIN Final report (())
[2018-03-15 14:23] LABS: ACID FAST SMEAR Negative (()); AFB SPECIMEN PROCESSING Concentration (())
[2018-03-15 20:23] LABS: ALBUMIN 1.9 g/dL (3.4-5.0); ANION GAP 6.8 mmol/L (8-16); BILIRUBIN - TOTAL 0.73 mg/dL (0.2-1.3); CALCIUM 8.2 mg/dL (8.5-10.1); CARBON DIOXIDE 36.4 mmol/L (21.0-32.0); CREATININE - SERUM 1.2 mg/dL (0.6-1.3); MAGNESIUM - SERUM 1.9 mg/dL (1.8-2.4); POTASSIUM - SERUM 3.2 mmol/L (3.5-5.1); PROTEIN - SERUM 5.8 g/dL (6.4-8.2)
[2018-03-16] VITALS (24 sets, daily range): BP systolic 86–111; BP diastolic 60–79
[2018-03-16 06:35] LABS: BASOPHILS 0.2 % (0-2); EOSINOPHILS 0.7 % (0-7); HEMATOCRIT 37.1 % (42.0-54.0); HEMOGLOBIN 12.2 g/dL (13.5-17.5); IMMATURE GRANULOCYTES 0.3 % (0-5); LYMPHOCYTES 12.3 % (15-50); MCH 32.3 pg (26.0-34.0); MCHC 32.9 g/dL (31.0-37.0); MCV 98.1 fL (80.0-100.0); MEAN PLATELET VOLUME 8.9 fL (7.4-10.4); MONOCYTES 7.7 % (2-11); NEUTROPHILS 78.8 % (40-80); PLATELET COUNT 281 10x3/uL (130-400); RBC 3.78 10x6/uL (4.20-6.10); RDW 16.2 % (11.5-14.5); WBC 9.4 10x3/uL (4.8-10.8)
[2018-03-16 06:52] LABS: ALBUMIN 1.8 g/dL (3.4-5.0); ANION GAP 8.4 mmol/L (8-16); BILIRUBIN - TOTAL 0.87 mg/dL (0.2-1.3); CALCIUM 7.9 mg/dL (8.5-10.1); CARBON DIOXIDE 33.8 mmol/L (21.0-32.0); CREATININE - SERUM 1.2 mg/dL (0.6-1.3); MAGNESIUM - SERUM 1.7 mg/dL (1.8-2.4); POTASSIUM - SERUM 3.2 mmol/L (3.5-5.1); PROTEIN - SERUM 5.6 g/dL (6.4-8.2)
[2018-03-16 07:28] LABS: PHENYTOIN (DILANTIN) 5.8 ug/mL (10.0-20.0); PHOSPHOROUS 4.6 mg/dL (2.5-4.9)
[2018-03-17] VITALS (24 sets, daily range): BP systolic 89–132; BP diastolic 62–101
[2018-03-17 03:31] LABS: BASOPHILS 0.5 % (0-2); EOSINOPHILS 0.9 % (0-7); HEMATOCRIT 38.8 % (42.0-54.0); HEMOGLOBIN 12.7 g/dL (13.5-17.5); IMMATURE GRANULOCYTES 0.3 % (0-5); LYMPHOCYTES 16.3 % (15-50); MCH 32.4 pg (26.0-34.0); MCHC 32.7 g/dL (31.0-37.0); MONOCYTES 8.8 % (2-11); NEUTROPHILS 73.2 % (40-80); PLATELET COUNT 277 10x3/uL (130-400); RBC 3.92 10x6/uL (4.20-6.10); RDW 16.5 % (11.5-14.5)
[2018-03-17 03:43] LABS: ANION GAP 11.8 mmol/L (8-16); BILIRUBIN - TOTAL 0.93 mg/dL (0.2-1.3); CALCIUM 8.2 mg/dL (8.5-10.1); CARBON DIOXIDE 31.6 mmol/L (21.0-32.0); CREATININE - SERUM 1.3 mg/dL (0.6-1.3); POTASSIUM - SERUM 3.4 mmol/L (3.5-5.1); PROTEIN - SERUM 6.1 g/dL (6.4-8.2)
[2018-03-18] VITALS (23 sets, daily range): BP systolic 86–114; BP diastolic 42–88
[2018-03-18 04:18] LABS: BASOPHILS 0.2 % (0-2); EOSINOPHILS 2.8 % (0-7); HEMATOCRIT 40.7 % (42.0-54.0); HEMOGLOBIN 13.1 g/dL (13.5-17.5); IMMATURE GRANULOCYTES 0.2 % (0-5); LYMPHOCYTES 9.2 % (15-50); MCHC 32.2 g/dL (31.0-37.0); MCV 99.5 fL (80.0-100.0); MEAN PLATELET VOLUME 9.1 fL (7.4-10.4); MONOCYTES 4.8 % (2-11); NEUTROPHILS 82.8 % (40-80); PLATELET COUNT 285 10x3/uL (130-400); RBC 4.09 10x6/uL (4.20-6.10); RDW 16.3 % (11.5-14.5); WBC 12.4 10x3/uL (4.8-10.8)
[2018-03-18 04:36] LABS: ALBUMIN 1.8 g/dL (3.4-5.0); BILIRUBIN - TOTAL 0.79 mg/dL (0.2-1.3); CARBON DIOXIDE 32.9 mmol/L (21.0-32.0); CREATININE - SERUM 1.2 mg/dL (0.6-1.3); PROTEIN - SERUM 6.1 g/dL (6.4-8.2)
[2018-03-18 04:38] LABS: ANION GAP 8.4 mmol/L (8-16); POTASSIUM - SERUM 3.3 mmol/L (3.5-5.1)
[2018-03-19] VITALS (24 sets, daily range): BP systolic 94–119; BP diastolic 61–98
[2018-03-19 04:56] LABS: BASOPHILS 0.2 % (0-2); EOSINOPHILS 3.2 % (0-7); HEMATOCRIT 39.3 % (42.0-54.0); HEMOGLOBIN 12.5 g/dL (13.5-17.5); IMMATURE GRANULOCYTES 0.3 % (0-5); LYMPHOCYTES 10.6 % (15-50); MCHC 31.8 g/dL (31.0-37.0); MCV 100.5 fL (80.0-100.0); MEAN PLATELET VOLUME 9.3 fL (7.4-10.4); MONOCYTES 6.8 % (2-11); NEUTROPHILS 78.9 % (40-80); PLATELET COUNT 263 10x3/uL (130-400); RBC 3.91 10x6/uL (4.20-6.10); RDW 16.4 % (11.5-14.5); WBC 11.4 10x3/uL (4.8-10.8)
[2018-03-19 05:24] LABS: ALBUMIN 1.8 g/dL (3.4-5.0); ALKALINE PHOSPHATASE 106 U/L (46-116); BILIRUBIN - TOTAL 0.54 mg/dL (0.2-1.3); CALC OSMOLALITY 284 mosm/kg (275-300); CALCIUM 7.9 mg/dL (8.5-10.1); CARBON DIOXIDE 31.9 mmol/L (21.0-32.0); CHLORIDE - SERUM 102 mmol/L (98-107); GLUCOSE 103 mg/dL (74-106); POTASSIUM - SERUM 3.4 mmol/L (3.5-5.1); SODIUM 142 mmol/L (136-145); UREA NITROGEN 18 mg/dL (7-18); eGFR NON AFRICAN AMERICAN 85 mL/min (90-120)
[2018-03-19 05:25] LABS: ALT (SGPT) 44 U/L (10-68)
[2018-03-19 12:11] LABS: MAGNESIUM - SERUM 2.1 mg/dL (1.8-2.4); PHENYTOIN (DILANTIN) 2.3 ug/mL (10.0-20.0); POTASSIUM - SERUM 3.9 mmol/L (3.5-5.1)
[2018-03-20] VITALS (19 sets, daily range): BP systolic 86–109; BP diastolic 58–78
[2018-03-20 04:47] LABS: BASOPHILS 0.2 % (0-2); EOSINOPHILS 0.9 % (0-7); HEMATOCRIT 34.8 % (42.0-54.0); HEMOGLOBIN 11.3 g/dL (13.5-17.5); IMMATURE GRANULOCYTES 0.3 % (0-5); LYMPHOCYTES 5.4 % (15-50); MCH 32.2 pg (26.0-34.0); MCHC 32.5 g/dL (31.0-37.0); MCV 99.1 fL (80.0-100.0); MEAN PLATELET VOLUME 9.4 fL (7.4-10.4); MONOCYTES 6.4 % (2-11); NEUTROPHILS 86.8 % (40-80); PLATELET COUNT 245 10x3/uL (130-400); RBC 3.51 10x6/uL (4.20-6.10); RDW 16.2 % (11.5-14.5)
[2018-03-20 04:53] LABS: WBC 15.1 10x3/uL (4.8-10.8)
[2018-03-20 05:01] LABS: ALBUMIN 1.8 g/dL (3.4-5.0); ALKALINE PHOSPHATASE 100 U/L (46-116); ALT (SGPT) 41 U/L (10-68); BILIRUBIN - TOTAL 0.61 mg/dL (0.2-1.3); CALC OSMOLALITY 282 mosm/kg (275-300); CALCIUM 7.7 mg/dL (8.5-10.1); CARBON DIOXIDE 30.7 mmol/L (21.0-32.0); CHLORIDE - SERUM 101 mmol/L (98-107); CREATININE - SERUM 0.9 mg/dL (0.6-1.3); GLUCOSE 129 mg/dL (74-106); POTASSIUM - SERUM 3.4 mmol/L (3.5-5.1); PROTEIN - SERUM 6.2 g/dL (6.4-8.2); SODIUM 139 mmol/L (136-145); UREA NITROGEN 20 mg/dL (7-18); eGFR NON AFRICAN AMERICAN > 90 mL/min (90-120)
[2018-03-20 12:02] LABS: POTASSIUM - SERUM 3.8 mmol/L (3.5-5.1); VANCOMYCIN - TROUGH 12.3 ug/mL (10.0-20.0)
[2018-03-20 17:12] LABS: FUNGUS MYCOLOGY CULTURE Preliminary report (())
== END 2018-03-20 20:13 | disposition short-term general hospital (02) | DRG 207 ==
LOC: D.ER 03:47 → D.EDHOLD 06:16 → D.ICU 06:16 → D.M2 14:01 → D.EDHOLD 14:42 → D.M2 15:12 → D.EDHOLD 15:16 → D.M2 17:12 → D.ICU 03-14 11:23
PROVIDERS: Family Medicine; Internal Medicine Nephrology; Internal Medicine Pulmonary Disease
PROC: 5A1955Z Respiratory Ventilation, Greater than 96 Consecutive Hours (ICD-10-PCS; principal; 2018-03-13)
PROC: 0BC58ZZ Extirpation of Matter from Right Middle Lobe Bronchus, Via Natural or Artificial Opening Endoscopic (ICD-10-PCS; 2018-03-15)
DX: J69.0 Pneumonitis due to inhalation of food and vomit (principal); I50.23 Acute on chronic systolic (congestive) heart failure; J96.01 Acute respiratory failure with hypoxia; R40.2124 Coma scale, eyes open, to pain, 24 hours or more after hospital admission; R40.2214 Coma scale, best verbal response, none, 24 hours or more after hospital admission; F10.239 Alcohol dependence with withdrawal, unspecified; G93.1 Anoxic brain damage, not elsewhere classified; I11.0 Hypertensive heart disease with heart failure; I25.10 Atherosclerotic heart disease of native coronary artery without angina pectoris; R40.2354 Coma scale, best motor response, localizes pain, 24 hours or more after hospital admission; F20.9 Schizophrenia, unspecified; K70.30 Alcoholic cirrhosis of liver without ascites